=== PATIENT | male | born 1955 | race Caucasian/White ===

== ENCOUNTER → 2018-01-21 | Outpatient (CLI) | payer BC ==
[2018-01-21 18:06] LABS: BASO % 0.4 %; BASO ABS # 0.03 K/uL (0-0.2); EOS % 5.1 %; EOS ABS # 0.36 K/uL (0-0.5); HEMATOCRIT 44.6 % (42-52); HEMOGLOBIN 15.1 g/dL (14.0-18.0); IG# 0.02 K/uL (0.00-0.02); LYMPH % 30.5 %; LYMPH ABS # 2.16 K/uL (1.2-3.4); MEAN CELL VOLUME 86.8 fL (80-100); MEAN CORPUSCULAR HEMOGLOBIN 29.4 pg (25-34); MEAN CORPUSCULAR HGB CONC 33.9 g/dl (32-36); MEAN PLATELET VOLUME 11.2 fL (7.4-10.4); MONO % 5.4 %; MONO ABS # 0.38 K/uL (0.11-0.59); NEUT % 58.3 %; NEUT ABS # 4.14 K/uL (1.4-6.5); PLATELET COUNT 181 K/uL (130-400); RED CELL DISTRIBUTION WIDTH CV 12.6 % (11.5-14.5); RED CELL DISTRIBUTION WIDTH SD 40.1 fL (36.4-46.3); WHITE BLOOD COUNT 7.09 K/uL (4.8-10.8)
[2018-01-21 19:16] LABS: ALBUMIN 4.1 gm/dl (3.4-5.0); ALT/SGPT 51 U/L (12-78); AST/SGOT 26 U/L (15-37); BLOOD UREA NITROGEN 12 mg/dl (7-18); CALCIUM 8.6 mg/dl (8.5-10.1); CARBON DIOXIDE 30 mmol/L (21-32); GLUCOSE 192 mg/dl (70-99); LIPASE 149 U/L (73-393); POTASSIUM 3.9 mmol/L (3.5-5.1); SODIUM 137 mmol/L (136-145)
[2018-01-21 19:24] LABS: ALKALINE PHOSPHATASE 77 U/L (45-117); CHOLESTEROL 178 mg/dl (0-200); LDL CHOLESTEROL CALCULATED 102 mg/dl; TOTAL PROTEIN 8.1 gm/dl (6.4-8.2)
[2018-01-22 06:12] LABS: HEMOGLOBIN A1C 10.7 % (4.5-5.6)
== END | disposition home or self-care (01) ==
LOC: C.LABMFLN 12:27
PROVIDERS: ATTEND Family Medicine
DX: E11.42 Type 2 diabetes mellitus with diabetic polyneuropathy (principal); R53.83 Other fatigue; R10.31 Right lower quadrant pain; G62.9 Polyneuropathy, unspecified; Z12.5 Encounter for screening for malignant neoplasm of prostate

== ENCOUNTER → 2018-02-04 | Outpatient (CLI) | payer BC ==
--- NOTE | 2018-02-04 08:17 | DIAGNOSTIC IMAGING REPORT ---
ABDOMEN COMPLETE (US) CLINICAL HISTORY: Chronic right-sided abdominal pain. COMPARISON STUDY: No previous studies for comparison. FINDINGS: Study is compromised by suboptimal penetration. Hepatic echogenicity is mildly increased. No hepatic lesions are identified. There is no definite biliary ductal dilatation. Note is made of a 4 mm nonmobile echogenic focus adherent to the gallbladder wall without associated shadowing. This favors a polyp. There is no gallbladder wall thickening. No shadowing gallstones are identified. The pancreas is obscured by overlying bowel gas. The size of the spleen is normal there is no hydronephrosis. Renal echogenicity, size and cortical thickness are normal. The abdominal aorta is obscured by overlying bowel gas as is the inferior vena cava. IMPRESSION: 1. No evidence of acute cholecystitis. 4 mm nonmobile echogenic focus adherent to the gallbladder wall favors a polyp. 2. Study compromised by suboptimal penetration. Obscured pancreas and abdominal aorta. 3. Suspected fatty infiltration of the liver. 4. No hydronephrosis. Electronically signed by: Trever Yang M.D. 02/04/2018 8:16 AM Dictated Date/Time: 02/04/2018 8:09 AM
== END | disposition home or self-care (01) ==
LOC: C.ULTR 07:20
PROVIDERS: ATTEND Family Medicine
DX: R10.11 Right upper quadrant pain (principal); R10.31 Right lower quadrant pain

== ENCOUNTER 2023-01-03 17:58 | Observation (INO) ==
--- NOTE | 2023-01-03 18:05 | ED Triage Note ---
Date of Service January 03, 2023 History of Present Illness This patient was briefly evaluated while in triage. An abbreviated physical exam was performed. This patient is a 67-year-old Male who presents to the ED for evaluation of SOB. Pt. was at outpatient CT for PE study when he developed worsening SOB and chest pain with lying flat, and shivering. CT unable to control symptoms or complete study and referred to ED. Pt. had Covid-19 about 8 weeks ago. Has been having increasing fatigue, SOB, and low HR (40's) on home pulse ox. Physical Exam VITALS: Vitals are noted on the nurse's note and reviewed by myself. GENERAL: This is a 67 year old male, in no acute distress, nondiaphoretic, well- developed well-nourished. SKIN: No obvious rashes, edema, erythema HEAD: Normocephalic atraumatic. EYES: Conjunctivae without injection, sclerae without icterus. NECK: No JVD. LUNGS: No retractions or accessory muscle use. MUSCULOSKELETAL: Normal gait. NEURO: Patient was alert and oriented to person place and time. No focal neurological deficits. Initial orders for labs and / or imaging were placed and patient was placed in the waiting area until a bed is available. Please see further documentation for the full ED course. MDM / Impression Impression Impression: SOB (shortness of breath), Diabetes
--- NOTE | 2023-01-03 18:33 | Emergency Department Note ---
History of Present Illness General Chief complaint: Shortness of Breath/Dyspnea Stated complaint: SOB,HEART RATE LOW,ABNORMAL LABS Time Seen by Provider: 01/03/23 18:16 Source: patient, family (Niece is at the bedside) and old records reviewed (I have reviewed the office visit from today Dr. Becerra) Mode of arrival: ambulatory Limitations: no limitations History of Present Illness This patient is a 67-year-old male who comes in after having shortness of breath and low oxygen to 87 at home. He had COVID in October has been short of breath off and on since then he saw Dr. Garcia and he was ordered a CAT scan to make sure that he did not have any PE or other pathology the patient could not tolerate he got very anxious. He is feeling less anxious now he has had no chest pain or trauma no cough no lightheadedness or dizziness he said his pulse was low at home on a monitor but he had no lightheadedness or dizziness or syncope no blood or melena stool he has had some chronic diarrhea elated to his metformin. No lower extremity pain or swelling. He has known a [place] and is very active outside he does not get chest pain or shortness of breath at work he says but he does have a little bit of edema in his legs at the end of the day he has been very tired lately his B12 is been low and they have been replenishing this. he said since he had COVID in October he has been short of breath off and on. He says it occurs more at night and he takes a few deep breaths and feels better Home Medications Medication Instructions Recorded Confirmed Type metronidazole 0.75 % topical cream 1 appln topical BID PRN roseaca 05/08/19 01/03/23 Rx #45 grams triamcinolone acetonide 0.1 % 1 appln topical BID PRN contact 05/08/19 01/03/23 Rx topical cream dermatitis #30 grams tamsulosin 0.4 mg capsule 0.8 mg PO HS #180 caps 01/29/22 01/03/23 Rx lisinopril 10 mg tablet 10 mg PO DAILY #90 tabs 02/02/22 01/03/23 Rx propranolol 60 mg capsule,24 60 mg PO DAILY #90 caps 02/02/22 01/03/23 Rx hr,extended release atorvastatin 10 mg tablet 10 mg PO DAILY #90 tabs 05/28/22 01/03/23 Rx metformin 500 mg tablet,extended 500 mg PO BID #180 tabs 07/10/22 01/03/23 Rx release 24 hr gabapentin 300 mg capsule 300 mg PO BID #180 caps 08/07/22 01/03/23 Rx meloxicam 15 mg tablet 15 mg PO QAM #30 tabs 11/14/22 01/03/23 Rx glimepiride 2 mg tablet 2 mg PO .COMPLEX #270 tabs 12/11/22 01/03/23 Rx Allergies Allergy/AdvReac Type Severity Reaction Status Date / Time adhesive tape Allergy Mild RED/ITCHY Verified 12/11/22 09:06 Past Med/Surg History Medical History (Updated 01/03/23 @ 18:33 by Marcos Mcknight MD) Chronic back pain Claustrophobia Diabetes Diabetic neuropathy Dyspnea Elevated blood pressure reading Familial hyperlipidemia Fatigue Has daytime drowsiness History of tobacco use Hx of hyperlipidemia Hypoxia Left low back pain Memory loss Osteoarthritis Right sided abdominal pain Snoring Vitamin B12 deficiency anemia Witnessed episode of apnea Surgical History History of anesthesia reaction WITH HERNIA SURGERY, [facility]/DR BERNARD/"COME OUT OF IT LIKE A WILD MAN" - REMEMBERS 6 NURSES AROUND HIM , REMEMBERS HAVING A MASK ON HIM - PT CLAUSTROPHOBIC History of left knee surgery History of tonsillectomy Hx of arthroscopy of right knee Hx of arthroscopy of shoulder L ROTATOR CUFF REPAIR Hx of colonoscopy Hx of hernia repair X2 UMBILICAL, X1 RIGHT INGUINAL REPAIR Family History Father Family history of diabetes mellitus Black lung disease Coronary heart disease Stroke Cancer Myocardial infarction Mother Cancer Diabetes Brother Cancer Coronary heart disease Diabetes Pancreatitis Sister Diabetes Myocardial infarction Coronary heart disease Social History Smoking Status: Former smoker Cigarettes Per Day: 1/2-1 ppd x 20 years; Second Hand Exposure: No; Hx Alcohol Use: Yes Alcohol type: beer and hard liquor Hx Substance Use: No Preferred Language: Mongolian Communication Ability: Effective Visual Impairment: Limited Hearing Ability: Normal Bus Starter Required: No Beliefs That Will Affect Care: None marital status: Current Living Situation: Alone current occupational status: retired Feels Safe at Home: Yes Dental Care, Regularly: No Physical Activity Frequency: Does not Exercise Seatbelt Use: always Assistive Devices: Glasses Review of Systems A total of 10 systems reviewed and were otherwise negative Physical Exam Vital Signs Vital Signs - 24 hr 01/03/23 18:02 01/03/23 18:05 01/03/23 18:25 Temperature 36 C L Temperature Source Temporal Artery Scan Pulse Rate 70 62 Pulse Rate [Apical] Pulse Rhythm Regular Respiratory Rate 26 H Respiratory Effort / Characteristics Respiratory Depth Blood Pressure 141/84 H Blood Pressure [Right Arm] Blood Pressure Mean 103 Blood Pressure Mean [Right Arm] Pulse Oximetry 95 Oxygen Delivery Method Room Air Room Air Sepsis Recent Fever Within 48 Hours No Sepsis New/Unexplained Change in Mental Status No Sepsis Action Taken by Nursing No Action Required 01/03/23 18:41 Temperature Temperature Source Pulse Rate Pulse Rate [Apical] 59 L Pulse Rhythm Respiratory Rate 19 Respiratory Effort / Characteristics Non-Labored Spontaneous Respiratory Depth Normal Blood Pressure Blood Pressure [Right Arm] 166/72 H Blood Pressure Mean Blood Pressure Mean [Right Arm] 103 Pulse Oximetry 95 Oxygen Delivery Method Room Air Sepsis Recent Fever Within 48 Hours Sepsis New/Unexplained Change in Mental Status Sepsis Action Taken by Nursing General: Well developed well nourished [id number] middle-aged male who appears breathing comfortably on room air and in no acute distress, breathing comfortably on room air. Normal speech HEENT: Normal cephalic atraumatic. Pupils are equal round and reactive to light. Extraocular movements are intact. Oropharynx is pink with moist mucous membranes. No swelling of the mouth lips or tongue. No swelling mouth lips or tongue. Neck: Supple with a midline trachea. No meningeal signs or stiffness, no JVD or bruits. No Stridor. Chest: Clear to auscultation bilaterally. No wheezes or rhonchi. No increased work of breathing. Heart: Regular rate and rhythm without murmurs or gallops. Abdomen: Soft nontender, nondistended without rebound guarding or rigidity. Extremities: No cyanosis clubbing or edema. No calf tenderness or assymetry Spine/Back. Non tender to palpation. No CVA tenderness Skin: Good turgor without rashes. Neurologic exam: Cranial nerves two through 12 are intact. Motor and sensation are intact and symmetrical throughout. Medical Decision Making Differential Diagnosis Infection, CHF, cardiac disease, PE, COVID complication, pulmonary disease, anemia, electrolyte or metabolic abnormality, anxiety, arrhythmia Medical Records Attestation: I reviewed the patient's medical records. Home Medications Current Medication List: was personally reviewed by me Laboratory Data Attestation: I reviewed the patient's lab results. 01/03/23 18:17 01/03/23 18:17 Lab Results 01/03/23 01/03/23 01/03/23 Range/Units 18:17 18:17 18:17 WBC 8.20 (4.8-10.8) K/ul RBC 4.63 L (4.70-6.10) M/uL Hgb 13.7 L (14.0-18.0) g/dl Hct 40.7 L (42.0-52.0) % MCV 87.9 (80.0-100.0) fL MCH 29.6 (25.0-34.0) pg MCHC 33.7 (32.0-36.0) g/dL RDW Std Deviation 41.9 (36.4-46.3) fL RDW Coeff of Cristel 13.1 (11.5-14.5) % Plt Count 175 (130-400) K/uL MPV 11.4 (9.4-12.4) fL Immature Gran % (Auto) 0.4 % Neut % (Auto) 57.4 % Lymph % (Auto) 26.3 % [place] % (Auto) 9.3 % Eos % (Auto) 6.0 % Baso % (Auto) 0.6 % Neut # (Auto) 4.71 (1.40-6.50) K/uL Lymph # (Auto) 2.16 (1.2-3.4) K/uL [place] # (Auto) 0.76 H (0.11-0.59) K/uL Eos # (Auto) 0.49 (0-0.50) K/uL Baso # (Auto) 0.05 (0-0.2) K/uL Immature Gran # (Auto) 0.03 (0.01-0.20) K/uL PT 11.0 (9.0-12.0) Seconds INR 1.0 (0.9-1.1) APTT 26.4 (21.0-31.0) Seconds PTT Ratio 0.9 VBG pH (7.36-7.41) VBG pCO2 (38-50) mmHg VBG pO2 mmHg VBG HCO3 mmol/L VBG O2 Saturation % VBG Base Excess mEq/L Sodium 140 (136-145) mmol/L Potassium 4.5 (3.5-5.1) mmol/L Chloride 106 (98-107) mmol/L Carbon Dioxide 34 H (21-32) mmol/L Anion Gap 0 L (3-11) BUN 14 (6-23) mg/dl Creatinine 0.97 (0.6-1.4) mg/dl Est Cr Clr Drug Dosing 94.7 ml/min Est GFR ( Amer) 93.9 ml/min Est GFR (Non-Af Amer) 81.0 ml/min BUN/Creatinine Ratio 14.4 (10-20) Glucose 144 H (70-99(Fasting)) mg/dl Calcium 9.6 (8.6-10.3) mg/dl Magnesium 1.5 L (1.7-2.4) mg/dl Total Bilirubin 0.5 (0.2-1.0) mg/dl AST 16 (13-39) U/L ALT 17 (7-52) U/L Alkaline Phosphatase 64 (34-104) U/L Troponin I High Sens 7.5 (0-20) pg/ml B-Natriuretic Peptide (0-100) pg/ml Total Protein 7.6 (6.0-8.3) gm/dl Albumin 4.7 (3.4-5.0) gm/dl Globulin 2.9 (2.5-4.0) gm/dl Albumin/Globulin Ratio 1.6 (0.9-2) Urine Color Urine Appearance (Clear) Urine pH (4.5-7.5) Ur Specific [place] (1.000-1.030) Urine Protein (Negative) Urine Glucose (UA) (Negative) Urine Ketones (Negative) Urine Blood (Negative) Urine Nitrite (Negative) Urine Bilirubin (Negative) Urine Urobilinogen (Negative) Ur Leukocyte Esterase (Negative) 01/03/23 01/03/23 01/03/23 Range/Units 18:17 18:17 18:50 WBC (4.8-10.8) K/ul RBC (4.70-6.10) M/uL Hgb (14.0-18.0) g/dl Hct (42.0-52.0) % MCV (80.0-100.0) fL MCH (25.0-34.0) pg MCHC (32.0-36.0) g/dL RDW Std Deviation (36.4-46.3) fL RDW Coeff of Cristel (11.5-14.5) % Plt Count (130-400) K/uL MPV (9.4-12.4) fL Immature Gran % (Auto) % Neut % (Auto) % Lymph % (Auto) % [place] % (Auto) % Eos % (Auto) % Baso % (Auto) % Neut # (Auto) (1.40-6.50) K/uL Lymph # (Auto) (1.2-3.4) K/uL [place] # (Auto) (0.11-0.59) K/uL Eos # (Auto) (0-0.50) K/uL Baso # (Auto) (0-0.2) K/uL Immature Gran # (Auto) (0.01-0.20) K/uL PT (9.0-12.0) Seconds INR (0.9-1.1) APTT (21.0-31.0) Seconds PTT Ratio VBG pH 7.30 L (7.36-7.41) VBG pCO2 67 H (38-50) mmHg VBG pO2 18 mmHg VBG HCO3 33 mmol/L VBG O2 Saturation < 60.0 % VBG Base Excess 4.4 mEq/L Sodium (136-145) mmol/L Potassium (3.5-5.1) mmol/L Chloride (98-107) mmol/L Carbon Dioxide (21-32) mmol/L Anion Gap (3-11) BUN (6-23) mg/dl Creatinine (0.6-1.4) mg/dl Est Cr Clr Drug Dosing ml/min Est GFR ( Amer) ml/min Est GFR (Non-Af Amer) ml/min BUN/Creatinine Ratio (10-20) Glucose (70-99(Fasting)) mg/dl Calcium (8.6-10.3) mg/dl Magnesium (1.7-2.4) mg/dl Total Bilirubin (0.2-1.0) mg/dl AST (13-39) U/L ALT (7-52) U/L Alkaline Phosphatase (34-104) U/L Troponin I High Sens (0-20) pg/ml B-Natriuretic Peptide 199 H (0-100) pg/ml Total Protein (6.0-8.3) gm/dl Albumin (3.4-5.0) gm/dl Globulin (2.5-4.0) gm/dl Albumin/Globulin Ratio (0.9-2) Urine Color Yellow Urine Appearance Clear (Clear) Urine pH 5.5 (4.5-7.5) Ur Specific [place] 1.022 (1.000-1.030) Urine Protein Negative (Negative) Urine Glucose (UA) 3+ H (Negative) Urine Ketones Negative (Negative) Urine Blood Negative (Negative) Urine Nitrite Negative (Negative) Urine Bilirubin Negative (Negative) Urine Urobilinogen Negative (Negative) Ur Leukocyte Esterase Negative (Negative) Imaging Data Attestation: I personally reviewed and interpreted this imaging study as follows: My Impression: Chest x-raythere is an elevation of the right hemidiaphragm but no acute infiltrate, failure, pneumothorax seen Radiologist's Impression: Chest X-Ray 01/03/23 18:26 XR chest 1V portable HISTORY: 67 years-old Male sob acute shortness of breath COMPARISON: 02/26/2019 TECHNIQUE: AP view the chest FINDINGS: Cardiac silhouette is enlarged. Moderate right hemidiaphragmatic elevation, unchanged. No pneumothorax, pleural effusion, airspace consolidation or overt pulmonary edema. Degenerative changes of the shoulders and spine. IMPRESSION: No acute process. ACT 112: Negative or not required by law. The above report was generated using voice recognition software. It may contain grammatical, syntax or spelling errors. Electronically signed by: Kuldeep Shepherd M.D. 01/03/2023 7:00 PM ECG Data Attestation: I personally reviewed and interpreted this ECG as follows: Indication: + SOB/dyspnea Rate (beats per minute): 74 Rhythm: + normal sinus (Poor baseline but suspected normal sinus) ECG Intervals/blocks: + Normal QRS, + Normal QT and + Normal ID ECG [place]: + Normal ECG ST segments: + Nonspecific ST abnormalities ECG Findings: + Poor R wave progression; no PACs Comparison ECG Date: from (11/05/22) Change: no significant change MDM Narrative This patient comes in as described above. He was placed on a monitoring manager in room B8. He is here for intermittent shortness of breath since October. He reports that he was hypoxemic at home however is not hypoxemic here apparently when he was at Dr. Garcia's office his O2 sat dropped when he was exerting himself. He got very anxious in the CT scanner and could not complete the exam. I did order baseline blood work as well as a chest x-ray and EKG and discussed options about how we can get the CAT scan done including giving him some anxiolytics. Continuous monitoring manager: Orders placed in EMR for continuous cardiac monitoring: Upon my interpretation the patient was noted to be in normal sinus rhythm with a rate of 70 Impression & Plan SOB (shortness of breath), Diabetes Discharge Plan Visit Data Chief Complaint: Shortness of Breath/Dyspnea Stated Complaint: SOB,HEART RATE LOW,ABNORMAL LABS ED Provider: Marcos Mcknight Discharge Problem: SOB (shortness of breath), Diabetes Forms Stand Alone Forms: My [facility] Prescriptions Prescriptions: No Action tamsulosin 0.4 mg capsule 0.8 mg PO HS Qty: 180 3RF lisinopril 10 mg tablet 10 mg PO DAILY Qty: 90 3RF propranolol 60 mg capsule,extended release 24 hr 60 mg PO DAILY Qty: 90 3RF atorvastatin 10 mg tablet 10 mg PO DAILY Qty: 90 3RF Rx Instructions: Take with supper for cholesterol meloxicam 15 mg tablet 15 mg PO QAM Qty: 30 11RF metronidazole 0.75 % cream 1 appln topical BID PRN (Reason: roseaca) Qty: 45 3RF triamcinolone acetonide 0.1 % cream 1 appln topical BID PRN (Reason: contact dermatitis) Qty: 30 0RF metformin 500 mg tablet extended release 24 hr 500 mg PO BID Qty: 180 3RF glimepiride 2 mg tablet 2 mg PO .COMPLEX Qty: 270 3RF Rx Instructions: 2 mg orally 1 prior to breakfast and 2 prior to supper; gabapentin 300 mg capsule 300 mg PO BID Qty: 180 3RF Referrals Referrals: Evaristo Garcia MD [Primary Care Provider] -
[2023-01-03 18:43] LABS: Base Excess VBG 4.4 mEq/L; HCO3 VBG 33 mmol/L; Oxygen Saturation VBG < 60.0 %; PCO2 VBG 67 mmHg (38-50); PO2 VBG 18 mmHg
[2023-01-03 18:56] LABS: Basophils # (auto) 0.05 K/uL (0-0.2); Basophils % (auto) 0.6 %; Eosinophils # (auto) 0.49 K/uL (0-0.50); Hematocrit (blood only) 40.7 % (42.0-52.0); Hemoglobin 13.7 g/dl (14.0-18.0); Immature Granulocytes # (auto) 0.03 K/uL (0.01-0.20); Immature Granulocytes % (auto) 0.4 %; Lymphocytes # (auto) 2.16 K/uL (1.2-3.4); Lymphocytes % (auto) 26.3 %; Mean Corpuscular Hemoglobin 29.6 pg (25.0-34.0); Mean Corpuscular Hgb Conc 33.7 g/dL (32.0-36.0); Mean Corpuscular Volume 87.9 fL (80.0-100.0); Mean Platelet Volume 11.4 fL (9.4-12.4); Monocytes # (auto) 0.76 K/uL (0.11-0.59); Monocytes % (auto) 9.3 %; Neutrophils # (auto) 4.71 K/uL (1.40-6.50); Neutrophils % (auto) 57.4 %; Platelet Count 175 K/uL (130-400); RDW Coefficient of Variation 13.1 % (11.5-14.5); RDW Standard Deviation 41.9 fL (36.4-46.3); Red Blood Count 4.63 M/uL (4.70-6.10)
[2023-01-03 19:01] LABS: Appearance Urine Clear (Clear); Bilirubin Urine Negative (Negative); Blood Urine Negative (Negative); Color Urine Yellow; Glucose Urine UA 3+ (Negative); Ketones Urine Negative (Negative); Leukocyte Esterase Urine Negative (Negative); Nitrite Urine Negative (Negative); Protein Urine Negative (Negative); Specific Gravity Urine 1.022 (1.000-1.030); Urobilinogen Urine Negative (Negative); pH Urine 5.5 (4.5-7.5)
[2023-01-03 19:02] LABS: Albumin Globulin Ratio 1.6 (0.9-2); Albumin Level 4.7 gm/dl (3.4-5.0); BUN Creatinine Ratio 14.4 (10-20); Bilirubin,Total 0.5 mg/dl (0.2-1.0); Calcium 9.6 mg/dl (8.6-10.3); Creatinine Clr Calc Pharmacy 94.7 ml/min; Est GFR (African American) 93.9 ml/min; Globulin 2.9 gm/dl (2.5-4.0); Magnesium 1.5 mg/dl (1.7-2.4); Potassium 4.5 mmol/L (3.5-5.1); Total Protein 7.6 gm/dl (6.0-8.3)
--- NOTE | 2023-01-03 19:02 | XRay Report ---
XR chest 1V portable HISTORY: 67 years-old Male sob acute shortness of breath COMPARISON: 02/26/2019 TECHNIQUE: AP view the chest FINDINGS: Cardiac silhouette is enlarged. Moderate right hemidiaphragmatic elevation, unchanged. No pneumothora x, pleural effusion, airspace consolidation or overt pulmonary edema. Degenerative changes of the easton ulders and spine. IMPRESSION: No acute process. ACT 112: Negative or not required by law. The above report was generated using voice recognition software. It may contain grammatical, syntax o r spelling errors. Electronically signed by: Kuldeep Shepherd M.D. 01/03/2023 7:00 PM
[2023-01-03 19:09] LABS: Troponin I High Sensitivity 7.5 pg/ml (0-20)
[2023-01-03 19:15] LABS: Partial Thromboplastin Ratio 0.9; Partial Thromboplastin Time 26.4 Seconds (21.0-31.0)
[2023-01-03] MEDS ORDERED: LORazepam 2 MG/1 ML VIAL IV STA (19:20)
[2023-01-03 19:35] LABS: Influenza A virus by PCR Negative (Neg); Influenza B virus by PCR Negative (Neg); RSV by PCR Negative (Neg); SARS CoV2 RNA(COVID-19) Ceph NEGATIVE (Negative)
[2023-01-03] MEDS ORDERED: OPTIRAY 320 500ml IV ONE (20:13)
--- NOTE | 2023-01-03 20:49 | CT Scan Report ---
Exam(s): CTA CHEST IV Amt: 113ml Optiray 320 EXAM: CT Angiography Chest With Intravenous Contrast CLINICAL HISTORY: Reason for exam: Dyspnea. TECHNIQUE: Axial computed tomographic angiography images of the chest with intravenous contrast. CTDI is 50.19 mGy and DLP is 905.85 mGy-cm. Automated exposure control was utilized for the study. A dose lowering technique was utilized adhering to the principles of ALARA. MIP reconstructed images were created and reviewed. COMPARISON: No relevant prior studies available. FINDINGS: Pulmonary arteries: Unremarkable. No acute pulmonary embolism. Aorta: No acute findings. No thoracic aortic aneurysm. Lungs: Right base atelectasis. No focal infiltrate, pleural effusion, or pneumothorax. No mass. Pleural space: See above. Heart: Coronary artery calcifications. No significant pericardial effusion. No evidence of RV dysfunction. Bones/joints: No acute fracture. No dislocation. Soft tissues: Unremarkable. Lymph nodes: Unremarkable. No enlarged lymph nodes. Gallbladder and bile ducts: Punctate gallstones. IMPRESSION: 1. Right base atelectasis. No focal infiltrate, pleural effusion, or pneumothorax. 2. No acute pulmonary embolism. Electronically signed by: Timothy Godoy MD 01/03/23 20:48 PM
[2023-01-03] MEDS ORDERED: MAGNESIUM SULFATE / D5W 1 GM/100 ML BAG IV STA (21:19)
[2023-01-03] MEDS ORDERED: GABAPENTIN 300 MG CAP PO STA (23:16)
[2023-01-03] MEDS ORDERED: TAMSULOSIN HCL 0.4 MG CAP PO ONE (23:16)
[2023-01-04] MEDS ORDERED: GLUCOSE 40% GEL 15 GM TUBE PO PRN (00:18)
[2023-01-04] MEDS ORDERED: CARBOHYDRATES FOR HYPOGLYCEMIA PO PRN (00:18)
[2023-01-04] MEDS ORDERED: GLUCAGON FOR INJ 1 MG VIAL SQ PRN (00:18)
[2023-01-04] MEDS ORDERED: FUROSEMIDE INJ 20 MG/2 ML VIAL IV ONE (00:18)
[2023-01-04] MEDS ORDERED: ACETAMINOPHEN 325 MG TAB PO PRN (00:18)
[2023-01-04] MEDS ORDERED: GLUCOSE 10 TAB/TUBE PO PRN (00:18)
[2023-01-04] MEDS ORDERED: DEXTROSE 50% 50 ML SYRINGE IV PRN (00:18)
--- NOTE | 2023-01-04 01:25 | History & Physical Report ---
Date of Service January 03, 2023 Assessment & Plan (1) SOB (shortness of breath): Plan: 67-year-old male presenting with ongoing shortness of breath and hypoxia. Saturations 95% on 2 L nasal cannula. Postexertional hypoxia noted 85% after returning from the bathroom. Chest x-ray and CTA chest unremarkable aside from some right-sided atelectasis. Patient does report some mild bilateral lower extremity edema. He has mild elevation of BNP = 199. On telemetry accelerated junctional rhythm is noted. Possible CHF with mild volume overload contributing to patient's symptoms and mild hypoxemia. He does have a remote history of smoking. Reports smoking 1/4 to 1/2 pack a day intermittently for 15 years. He quit over 30 years ago. Has no previously diagnosed lung disease. Patient has never had a sleep study performed nor has he had pulmonary function testing. -Observation to medical telemetry Check 2D echo We will administer 1 dose of IV Lasix20 mg IV Monitor intake and output and daily weights Incentive spirometerencourage use q. hourly while awake Patient may benefit from outpatient sleep study (2) Hypoxia: Plan: Oxygenation on 2 L nasal cannula Continue supplemental oxygen Work-up for hypoxemia as above (3) Benign essential hypertension: Plan: Chronic. Elevated blood pressure presently 160/79 Continue lisinopril 10 mg p.o. daily Continue propranolol 60 mg p.o. daily with holding parameters given patient's present bradycardia (4) Controlled type 2 diabetes mellitus with diabetic neuropathy: Plan: Last hemoglobin A1c = 8.4 in 11/28/2022. Patient is compliant with his home oral medication regimen. We will hold oral diabetes medications Lantus 5 units twice daily with insulin sliding scale Goal blood sugar 110-140 Continue gabapentin for diabetic neuropathy (5) Hx of hyperlipidemia: Plan: Chronic. Stable. Continue atorvastatin 10 mg daily F/E/N -Hep-Lock, magnesium supplementation, carb consistent/heart healthy diet as tolerated ProphylaxisLovenox Codefull per discussion with patient Dispositionadmit to medical with telemetry Admission and Anticipated Discharge Date Admission Date: January 03, 2023 History of Present Illness Chief Complaint: Hypoxia, fatigue, shortness of breath Primary Care Provider: Evaristo Garcia MD Manish Madrid is a 67-year-old male with history of diabetes, hypertension and hyperlipidemia presenting from home with complaint of several weeks of progressive shortness of breath. Patient had COVID on November 05, 2022. He reports that his illness was mild. However, since recovering, he reports ongoing fatigue and shortness of breath. Patient recently purchased a home pulse oximeter and has been monitoring his saturations. He reports they have been low in the upper 80s with heart rate in the 40s to 50s. He does report feeling short of breath with some dyspnea on exertion as well. He was seen by his PCP today with these complaints. Was found to have oxygen levels in the 80s and was subsequently sent to the emergency room. Patient denies chest pain, palpitations, cough or wheeze. Denies fever, chills. Denies nausea, vomiting, diarrhea, constipation. Denies dizziness or syncope. He does have some mild increase in bilateral lower extremity edema noted over the last week or so. Patient seen in the room. Was breathing comfortably and speaking in complete sentences. He had supplemental oxygen in place2 L nasal cannula with saturations in the mid 90s. Oxygen turned off during our conversation and saturations maintained 92% or above. Patient did get up and ambulate to the bathroom without oxygen, upon his return to the bed saturations were 85% and patient was visibly dyspneic. ER course: Ativan 1 mg IV Magnesium 1 g IV Flomax 0.4 mg orderednot given Gabapentin 300 mg p.o. orderednot given Allergies Allergy/AdvReac Type Severity Reaction Status Date / Time adhesive tape Allergy Mild RED/ITCHY Verified 12/11/22 09:06 Home Medications Medication Instructions Recorded Confirmed Type metronidazole 0.75 % topical cream 1 appln topical BID PRN roseaca 05/08/19 01/03/23 Rx #45 grams triamcinolone acetonide 0.1 % 1 appln topical BID PRN contact 05/08/19 01/03/23 Rx topical cream dermatitis #30 grams tamsulosin 0.4 mg capsule 0.8 mg PO HS #180 caps 01/29/22 01/03/23 Rx lisinopril 10 mg tablet 10 mg PO DAILY #90 tabs 02/02/22 01/03/23 Rx propranolol 60 mg capsule,24 60 mg PO DAILY #90 caps 02/02/22 01/03/23 Rx hr,extended release atorvastatin 10 mg tablet 10 mg PO DAILY #90 tabs 05/28/22 01/03/23 Rx metformin 500 mg tablet,extended 500 mg PO BID #180 tabs 07/10/22 01/03/23 Rx release 24 hr gabapentin 300 mg capsule 300 mg PO BID #180 caps 08/07/22 01/03/23 Rx meloxicam 15 mg tablet 15 mg PO QAM #30 tabs 11/14/22 01/03/23 Rx glimepiride 2 mg tablet 2 mg PO .COMPLEX #270 tabs 12/11/22 01/03/23 Rx Past Med/Surg History Medical History (Updated 01/04/23 @ 01:33 by Laurie Smalls DO) Chronic back pain Claustrophobia Diabetes Diabetic neuropathy Dyspnea Elevated blood pressure reading Familial hyperlipidemia Fatigue Has daytime drowsiness History of tobacco use Hx of hyperlipidemia Hypoxia Left low back pain Memory loss Osteoarthritis Right sided abdominal pain Snoring Vitamin B12 deficiency anemia Witnessed episode of apnea Surgical History History of anesthesia reaction WITH HERNIA SURGERY, [facility]/DR BERNARD/"COME OUT OF IT LIKE A WILD MAN" - REMEMBERS 6 NURSES AROUND HIM , REMEMBERS HAVING A MASK ON HIM - PT CLAUSTROPHOBIC History of left knee surgery History of tonsillectomy Hx of arthroscopy of right knee Hx of arthroscopy of shoulder L ROTATOR CUFF REPAIR Hx of colonoscopy Hx of hernia repair X2 UMBILICAL, X1 RIGHT INGUINAL REPAIR Family History Father Family history of diabetes mellitus Black lung disease Coronary heart disease Stroke Cancer Myocardial infarction Mother Cancer Diabetes Brother Cancer Coronary heart disease Diabetes Pancreatitis Sister Diabetes Myocardial infarction Coronary heart disease Social History Smoking Status: Former smoker Cigarettes Per Day: 1/2-1 ppd x 20 years; Second Hand Exposure: No; Do You Dip or Chew Tobacco: No; Hx Alcohol Use: Yes Alcohol type: beer, wine and hard liquor Hx Substance Use: No Preferred Language: Filipino Communication Ability: Effective Visual Impairment: Limited Hearing Ability: Normal 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 Beliefs That Will Affect Care: None marital status: Current Living Situation: Alone current occupational status: retired Other Information That Helps Us Care for You: No Feels Safe at Home: Yes Safety Concerns: Feels Safe At This Time Dental Care, Regularly: No Physical Activity Frequency: Does not Exercise Seatbelt Use: always Assistive Devices: Denture - Upper and Glasses Review of Systems Review of Systems: All systems reviewed & are unremarkable except as noted in HPI & below Physical Exam Physical Exam: General: patient resting comfortably, NAD, non-toxic in appearance, AA&O x 4 Skin: warm, dry, intact, no rashes or lesions HEENT: NC/AT, PERRL, EOMI, anicteric sclera, conjunctiva without injection, external ear normal to inspection and nontender, nares patent, moist mucus membranes, dentition intact, no oropharyngeal lesions, neck supple, trachea midline, no LAD, no thyromegaly, no JVD Heart: +S1/S2, regular, no m/r/g Lungs: equal air entry bilaterally, crackles in bilateral bases Abd: +BS, soft, NT/ND, no masses/organomegaly/ascites Ext: warm, 2+ pulses in UE/LE bilaterally, no clubbing/cyanosis, 1+ pitting edema bilateral lower extremities Neuro: nonfocal, patient AA&O x 4, speech intact, no facial droop, moving all extremities on command with equal strength 5/5 Results & Data Results & Data Vital Signs (Past 12 Hours) Vital Signs Temp Pulse Pulse Resp BP BP Pulse Ox 01/04/23 00:36 01/04/23 00:36 36.5 C 59 L 20 160/79 H 93 01/03/23 23:40 72 20 95 01/03/23 23:31 165/67 H 01/03/23 23:31 60 20 96 01/03/23 23:30 64 20 94 01/03/23 23:20 95 01/03/23 23:00 72 18 92 01/03/23 23:00 164/92 H 01/03/23 22:50 74 20 94 01/03/23 22:40 67 22 95 01/03/23 22:30 72 20 95 01/03/23 22:30 166/79 H 01/03/23 22:20 63 24 95 01/03/23 22:10 64 22 95 01/03/23 22:00 80 24 95 01/03/23 22:00 161/78 H 01/03/23 21:50 80 22 96 01/03/23 21:40 77 15 96 01/03/23 21:30 72 19 95 01/03/23 21:30 159/84 H 01/03/23 21:20 58 L 17 95 01/03/23 21:10 72 20 95 01/03/23 21:00 71 17 92 01/03/23 21:00 133/70 01/03/23 20:50 65 92 01/03/23 20:40 61 19 91 01/03/23 20:30 74 90 01/03/23 20:30 142/72 H 01/03/23 20:20 68 21 91 01/03/23 20:20 143/78 H 01/03/23 20:18 91 01/03/23 19:50 64 16 01/03/23 19:40 58 L 22 93 01/03/23 19:35 66 23 93 01/03/23 19:35 150/96 H 01/03/23 19:20 60 16 94 01/03/23 19:10 53 L 15 92 01/03/23 19:00 59 L 15 94 01/03/23 19:00 176/76 H 01/03/23 18:53 68 23 92 01/03/23 18:41 166/72 H 01/03/23 18:41 61 19 95 01/03/23 18:40 59 L 15 93 01/03/23 18:30 46 L 19 94 01/03/23 18:20 65 22 95 01/03/23 18:15 77 96 01/03/23 23:59 01/03/23 22:26 73 01/03/23 18:41 59 L 19 166/72 H 95 01/03/23 18:25 62 01/03/23 18:05 01/03/23 18:02 36 C L 70 26 H 141/84 H 95 O2 Del Method O2 Flow Rate 01/04/23 00:36 Nasal Cannula 2 01/04/23 00:36 Nasal Cannula 2 01/03/23 23:40 01/03/23 23:31 01/03/23 23:31 01/03/23 23:30 01/03/23 23:20 01/03/23 23:00 01/03/23 23:00 01/03/23 22:50 01/03/23 22:40 01/03/23 22:30 01/03/23 22:30 01/03/23 22:20 01/03/23 22:10 01/03/23 22:00 01/03/23 22:00 01/03/23 21:50 01/03/23 21:40 01/03/23 21:30 01/03/23 21:30 01/03/23 21:20 01/03/23 21:10 01/03/23 21:00 Nasal Cannula 2 01/03/23 21:00 01/03/23 20:50 01/03/23 20:40 01/03/23 20:30 01/03/23 20:30 01/03/23 20:20 01/03/23 20:20 01/03/23 20:18 01/03/23 19:50 01/03/23 19:40 01/03/23 19:35 01/03/23 19:35 01/03/23 19:20 01/03/23 19:10 01/03/23 19:00 01/03/23 19:00 01/03/23 18:53 01/03/23 18:41 01/03/23 18:41 01/03/23 18:40 01/03/23 18:30 01/03/23 18:20 01/03/23 18:15 01/03/23 23:59 Nasal Cannula 2 01/03/23 22:26 01/03/23 18:41 Room Air 01/03/23 18:25 01/03/23 18:05 Room Air 01/03/23 18:02 Room Air Laboratory Results Laboratory Results WBC 8.20 K/ul (4.8-10.8) 01/03/23 18:17 RBC 4.63 M/uL (4.70-6.10) L 01/03/23 18:17 Hgb 13.7 g/dl (14.0-18.0) L 01/03/23 18:17 Hct 40.7 % (42.0-52.0) L 01/03/23 18:17 MCV 87.9 fL (80.0-100.0) 01/03/23 18:17 MCH 29.6 pg (25.0-34.0) 01/03/23 18:17 MCHC 33.7 g/dL (32.0-36.0) 01/03/23 18:17 RDW Std Deviation 41.9 fL (36.4-46.3) 01/03/23 18:17 RDW Coeff of Cristel 13.1 % (11.5-14.5) 01/03/23 18:17 Plt Count 175 K/uL (130-400) 01/03/23 18:17 MPV 11.4 fL (9.4-12.4) 01/03/23 18:17 Immature Gran % (Auto) 0.4 % 01/03/23 18:17 Neut % (Auto) 57.4 % 01/03/23 18:17 Lymph % (Auto) 26.3 % 01/03/23 18:17 [place] % (Auto) 9.3 % 01/03/23 18:17 Eos % (Auto) 6.0 % 01/03/23 18:17 Baso % (Auto) 0.6 % 01/03/23 18:17 Neut # (Auto) 4.71 K/uL (1.40-6.50) 01/03/23 18:17 Lymph # (Auto) 2.16 K/uL (1.2-3.4) 01/03/23 18:17 [place] # (Auto) 0.76 K/uL (0.11-0.59) H 01/03/23 18:17 Eos # (Auto) 0.49 K/uL (0-0.50) 01/03/23 18:17 Baso # (Auto) 0.05 K/uL (0-0.2) 01/03/23 18:17 Immature Gran # (Auto) 0.03 K/uL (0.01-0.20) 01/03/23 18:17 PT 11.0 Seconds (9.0-12.0) 01/03/23 18:17 INR 1.0 (0.9-1.1) 01/03/23 18:17 APTT 26.4 Seconds (21.0-31.0) 01/03/23 18:17 PTT Ratio 0.9 01/03/23 18:17 VBG pH 7.30 (7.36-7.41) L 01/03/23 18:17 VBG pCO2 67 mmHg (38-50) H 01/03/23 18:17 VBG pO2 18 mmHg 01/03/23 18:17 VBG HCO3 33 mmol/L 01/03/23 18:17 VBG O2 Saturation < 60.0 % 01/03/23 18:17 VBG Base Excess 4.4 mEq/L 01/03/23 18:17 Sodium 140 mmol/L (136-145) 01/03/23 18:17 Potassium 4.5 mmol/L (3.5-5.1) 01/03/23 18:17 Chloride 106 mmol/L (98-107) 01/03/23 18:17 Carbon Dioxide 34 mmol/L (21-32) H 01/03/23 18:17 Anion Gap 0 (3-11) L 01/03/23 18:17 BUN 14 mg/dl (6-23) 01/03/23 18:17 Creatinine 0.97 mg/dl (0.6-1.4) 01/03/23 18:17 Est Cr Clr Drug Dosing 94.7 ml/min 01/03/23 18:17 Est GFR ( Amer) 93.9 ml/min 01/03/23 18:17 Est GFR (Non-Af Amer) 81.0 ml/min 01/03/23 18:17 BUN/Creatinine Ratio 14.4 (10-20) 01/03/23 18:17 Glucose 144 mg/dl (70-99(Fasting)) H 01/03/23 18:17 POC Glucose 210 mg/dl (70-99) H 01/04/23 00:49 Calcium 9.6 mg/dl (8.6-10.3) 01/03/23 18:17 Magnesium 1.5 mg/dl (1.7-2.4) L 01/03/23 18:17 Total Bilirubin 0.5 mg/dl (0.2-1.0) 01/03/23 18:17 AST 16 U/L (13-39) 01/03/23 18:17 ALT 17 U/L (7-52) 01/03/23 18:17 Alkaline Phosphatase 64 U/L (34-104) 01/03/23 18:17 Troponin I High Sens 7.3 pg/ml (0-20) 01/03/23 21:27 B-Natriuretic Peptide 199 pg/ml (0-100) H 01/03/23 18:17 Total Protein 7.6 gm/dl (6.0-8.3) 01/03/23 18:17 Albumin 4.7 gm/dl (3.4-5.0) 01/03/23 18:17 Globulin 2.9 gm/dl (2.5-4.0) 01/03/23 18:17 Albumin/Globulin Ratio 1.6 (0.9-2) 01/03/23 18:17 Urine Color Yellow 01/03/23 18:50 Urine Appearance Clear (Clear) 01/03/23 18:50 Urine pH 5.5 (4.5-7.5) 01/03/23 18:50 Ur Specific [place] 1.022 (1.000-1.030) 01/03/23 18:50 Urine Protein Negative (Negative) 01/03/23 18:50 Urine Glucose (UA) 3+ (Negative) H 01/03/23 18:50 Urine Ketones Negative (Negative) 01/03/23 18:50 Urine Blood Negative (Negative) 01/03/23 18:50 Urine Nitrite Negative (Negative) 01/03/23 18:50 Urine Bilirubin Negative (Negative) 01/03/23 18:50 Urine Urobilinogen Negative (Negative) 01/03/23 18:50 Ur Leukocyte Esterase Negative (Negative) 01/03/23 18:50 SARS-CoV-2 (PCR) NEGATIVE (Negative) 01/03/23 18:42 Influenza Type A (PCR) Negative (Neg) 01/03/23 18:42 Influenza Type B (PCR) Negative (Neg) 01/03/23 18:42 RSV (RT-PCR) Negative (Neg) 01/03/23 18:42 Impressions Chest CTA 01/03/23 18:05 Exam(s): CTA CHEST IV Amt: 113ml Optiray 320 EXAM: CT Angiography Chest With Intravenous Contrast CLINICAL HISTORY: Reason for exam: Dyspnea. TECHNIQUE: Axial computed tomographic angiography images of the chest with intravenous contrast. CTDI is 50.19 mGy and DLP is 905.85 mGy-cm. Automated exposure control was utilized for the study. A dose lowering technique was utilized adhering to the principles of ALARA. MIP reconstructed images were created and reviewed. COMPARISON: No relevant prior studies available. FINDINGS: Pulmonary arteries: Unremarkable. No acute pulmonary embolism. Aorta: No acute findings. No thoracic aortic aneurysm. Lungs: Right base atelectasis. No focal infiltrate, pleural effusion, or pneumothorax. No mass. Pleural space: See above. Heart: Coronary artery calcifications. No significant pericardial effusion. No evidence of RV dysfunction. Bones/joints: No acute fracture. No dislocation. Soft tissues: Unremarkable. Lymph nodes: Unremarkable. No enlarged lymph nodes. Gallbladder and bile ducts: Punctate gallstones. IMPRESSION: 1. Right base atelectasis. No focal infiltrate, pleural effusion, or pneumothorax. 2. No acute pulmonary embolism. Electronically signed by: Timothy Godoy MD 01/03/23 20:48 PM Chest X-Ray 01/03/23 18:26 XR chest 1V portable HISTORY: 67 years-old Male sob acute shortness of breath COMPARISON: 02/26/2019 TECHNIQUE: AP view the chest FINDINGS: Cardiac silhouette is enlarged. Moderate right hemidiaphragmatic elevation, unchanged. No pneumothorax, pleural effusion, airspace consolidation or overt pulmonary edema. Degenerative changes of the shoulders and spine. IMPRESSION: No acute process. ACT 112: Negative or not required by law. The above report was generated using voice recognition software. It may contain grammatical, syntax or spelling errors. Electronically signed by: Kuldeep Shepherd M.D. 01/03/2023 7:00 PM ECG Additional Comments: EKG reveals accelerated junctional rhythm with rate of 74, QRS = 76, QTc = 397. No acute ST-T wave changes. PG Care Time/CCT Total # of Minutes Spent Total Time Spent with Patient: Total time spent is greater than 50% in coordination of care (as documented) at patient's floor/unit and/or counseling patient: Coding Level of Care Code 49574 INT INP/OBS CARE 3/75MIN Diagnoses SOB (shortness of breath) R06.02 Hypoxia R09.02 Benign essential hypertension I10 Controlled type 2 diabetes mellitus with diabetic neuropathy E11.40 Hx of hyperlipidemia Z86.39
[2023-01-04] MEDS: MAGNESIUM SULFATE / D5W 1 GM/100 ML BAG IV SCH ×2 (02:09→04:10)
[2023-01-04] MEDS: lisinopril 10 MG TAB PO SCH (08:39)
[2023-01-04] MEDS: PROPRANOLOL HCL 60 MG LA CAP PO SCH (08:39)
[2023-01-04] MEDS: MELOXICAM 7.5 MG TAB PO SCH (08:39)
[2023-01-04] MEDS: GABAPENTIN 300 MG CAP PO SCH ×2 (08:39→21:50)
[2023-01-04] MEDS: LANTUS PER UNIT CHARGE SQ SCH ×2 (08:43→22:05)
[2023-01-04] MEDS: INSULIN ASPART PER UNIT CHARGE SC SCH ×4 (08:43→20:52)
[2023-01-04] MEDS: ENOXAPARIN INJ 40 MG/0.4 ML SYR SQ SCH (09:59)
--- NOTE | 2023-01-04 13:51 | XCELERA ---
[id number] \\[id number]
--- NOTE | 2023-01-04 14:35 | Hospitalist Progress Note ---
Date of Service January 04, 2023 Assessment & Plan (1) SOB (shortness of breath): Plan: 67-year-old male presenting with ongoing shortness of breath and hypoxia. Saturations 95% on 2 L nasal cannula. Postexertional hypoxia noted 85% after returning from the bathroom. Chest x-ray and CTA chest unremarkable aside from some right-sided atelectasis. Patient does report some mild bilateral lower extremity edema. He has mild elevation of BNP = 199. On telemetry accelerated junctional rhythm is noted. Possible CHF with mild volume overload contributing to patient's symptoms and mild hypoxemia. He does have a remote history of smoking. Reports smoking 1/4 to 1/2 pack a day intermittently for 15 years. He quit over 30 years ago. Has no previously diagnosed lung disease. Patient has never had a sleep study performed nor has he had pulmonary function testing. 2D echo was normal Patient had a good diuretic response to IV Lasix No BMP available this morning Ordered stat BMP If renal function and electrolytes within acceptable range, may order another dose of Lasix Check BMP in a.m. Incentive spirometerencourage use q. hourly while awake Patient may benefit from outpatient sleep study (2) Hypoxia: Plan: Oxygenation on 2 L nasal cannula Continue supplemental oxygen Work-up for hypoxemia as above Order rest and exercise for tomorrow (3) Benign essential hypertension: Plan: Chronic. Elevated blood pressure presently 160/79 Continue lisinopril 10 mg p.o. daily Continue propranolol 60 mg p.o. daily with holding parameters given patient's present bradycardia (4) Controlled type 2 diabetes mellitus with diabetic neuropathy: Plan: Last hemoglobin A1c = 8.4 in 11/28/2022. Patient is compliant with his home oral medication regimen. We will hold oral diabetes medications Lantus 5 units twice daily with insulin sliding scale Goal blood sugar 110-140 Continue gabapentin for diabetic neuropathy (5) Hx of hyperlipidemia: Plan: Chronic. Stable. Continue atorvastatin 10 mg daily F/E/N -Hep-Lock, magnesium supplementation, carb consistent/heart healthy diet as tolerated ProphylaxisLovenox Codefull per discussion with patient Dispositionadmit to medical with telemetry Admission and Anticipated Discharge Date Admission Date: January 03, 2023 Subjective Patient says he feels better overall although he has not walked. He says that his leg swelling is improved. Review of Systems Review of Systems: All systems reviewed & are unremarkable except as noted in Subjective Physical Exam Physical Exam: General: Awake, conversant Heart: S1, S2/regular rate and rhythm, no murmur rubs or gallops Lungs: Diminished breath sounds bilaterally. Normal effort Abdomen: Soft/nontender/nondistended. No hepatosplenomegaly Extremities: No clubbing/cyanosis. Trace bilateral edema Behavior: Appropriate, cooperative Results & Data Results & Data Vital Signs (Past 12 Hours) Vital Signs Temp Pulse Pulse Resp BP Pulse Ox O2 Del Method 01/04/23 11:41 36.8 C 65 18 143/79 H 93 Room Air 01/04/23 10:16 Nasal Cannula 01/04/23 07:14 57 L 01/04/23 06:41 36.4 C L 70 20 190/71 H 93 Nasal Cannula 01/04/23 03:19 65 O2 Flow Rate 01/04/23 11:41 01/04/23 10:16 2 01/04/23 07:14 01/04/23 06:41 2 01/04/23 03:19 PG Care Time/CCT Total # of Minutes Spent Total Time Spent with Patient: Total time spent is greater than 50% in coordination of care (as documented) at patient's floor/unit and/or counseling patient: Coding Level of Care Code 23271 SUB INP/OBS CARE 2/35MIN Diagnoses SOB (shortness of breath) R06.02 Hypoxia R09.02 Benign essential hypertension I10 Controlled type 2 diabetes mellitus with diabetic neuropathy E11.40 Hx of hyperlipidemia Z86.39
[2023-01-04 15:33] LABS: Calcium 9.1 mg/dl (8.6-10.3); Potassium 3.9 mmol/L (3.5-5.1)
[2023-01-04 15:38] LABS: BUN Creatinine Ratio 11.9 (10-20); Creatinine Clr Calc Pharmacy 76.2 ml/min; Est GFR (African American) 74.1 ml/min; Est GFR (Non-African American) 63.9 ml/min
[2023-01-04] MEDS ORDERED: ATORVASTATIN 10 MG TAB PO SCH (16:30)
--- NOTE | 2023-01-04 18:00 | Electrocardiogram Report ---
Test Reason : Blood Pressure : / mmHG Vent. Rate : 069 BPM Atrial Rate : 069 BPM P-R Int : 144 ms QRS Dur : 086 ms QT Int : 376 ms P-R-T Axes : 057 -32 099 degrees QTc Int : 402 ms Sinus rhythm with Premature supraventricular complexes Left axis deviation Inferior infarct (cited on or before 06-AUG-2018) Poor R wave progression, consider anterior NH vs. lead placement vs. LVH Abnormal ECG When compared with ECG of 03-JAN-2023 18:17, (unconfirmed) Premature ventricular complexes are no longer Present Confirmed by Artie Cortez ([id number]) on 01/04/2023 6:05:15 PM Referred By: Evaristo Garcia Confirmed By:David Cortez
--- NOTE | 2023-01-04 20:41 | Ultrasound Report ---
ULTRASOUND BILATERAL LOWER EXTREMITY VENOUS CLINICAL HISTORY: Lower extremity edema. Dyspnea. COMPARISON STUDY: No priors. TECHNIQUE: Real-time, grayscale, and color Doppler sonography of the deep veins of the right and left lower extremity was performed from the inguinal crease to the calf. Compression and augmentation wer e utilized. FINDINGS: There is no sonographic evidence of deep venous thrombosis identified in the right or left lower extremity. The common femoral, superficial femoral, and popliteal veins are patent and normally compressible bilaterally. The greater saphenous vein and the profunda femoris vein at the junction w ith the common femoral vein are clear in both legs. The visualized calf veins are patent bilaterally. IMPRESSION: There is no sonographic evidence of deep venous thrombosis identified in the right or lef t lower extremity. ACT 112: Negative or not required by law. Electronically signed by: Evaristo Chun M.D. 01/04/2023 8:40 PM
[2023-01-04] MEDS ORDERED: TAMSULOSIN HCL 0.4 MG CAP PO SCH (21:00)
[2023-01-05] MEDS: MELOXICAM 7.5 MG TAB PO SCH (07:59)
[2023-01-05] MEDS: GABAPENTIN 300 MG CAP PO SCH (07:59)
[2023-01-05] MEDS: ENOXAPARIN INJ 40 MG/0.4 ML SYR SQ SCH (08:00)
[2023-01-05] MEDS: lisinopril 10 MG TAB PO SCH (08:00)
[2023-01-05] MEDS: PROPRANOLOL HCL 60 MG LA CAP PO SCH (08:00)
[2023-01-05] MEDS: LANTUS PER UNIT CHARGE SQ SCH (08:03)
[2023-01-05] MEDS: INSULIN ASPART PER UNIT CHARGE SC SCH ×2 (08:03→12:14)
[2023-01-05 10:35] LABS: BUN Creatinine Ratio 14.3 (10-20); Calcium 8.9 mg/dl (8.6-10.3); Est GFR (African American) 85.3 ml/min; Est GFR (Non-African American) 73.6 ml/min; Potassium 3.6 mmol/L (3.5-5.1)
--- NOTE | 2023-01-05 11:07 | Discharge Summary ---
Date of Service January 05, 2023 Admission HPI Per Admitting Provider Manish Madrid is a 67-year-old male with history of diabetes, hypertension and hyperlipidemia presenting from home with complaint of several weeks of progressive shortness of breath. Patient had COVID on November 05, 2022. He reports that his illness was mild. However, since recovering, he reports ongoing fatigue and shortness of breath. Patient recently purchased a home pulse oximeter and has been monitoring his s aturations. He reports they have been low in the upper 80s with heart rate in the 40s to 50s. He does report feeling short of breath with some dyspnea on exertion as well. He was seen by his PCP today with these complaints. Was found to have oxygen levels in the 80s and was subsequently sent to the emergency room. Patient denies chest pain, palpitations, cough or wheeze. Denies fever, chills. Denies nausea, vomiting, diarrhea, constipation. Denies dizziness or syncope. He does have some mild increase in bilateral lower extremity edema noted over the last week or so. Patient seen in the room. Was breathing comfortably and speaking in complete sentences. He had supplemental oxygen in place2 L nasal cannula with saturations in the mid 90s. Oxygen turned off during our conversation and saturations maintained 92% or above. Patient did get up and ambulate to the bathroom without oxygen, upon his return to the bed saturations were 85% and patient was visibly dyspneic. ER course: Ativan 1 mg IV Magnesium 1 g IV Flomax 0.4 mg orderednot given Gabapentin 300 mg p.o. orderednot given Admission Exam Per Admitting Provider General: patient resting comfortably, NAD, non-toxic in appearance, AA&O x 4 Skin: warm, dry, intact, no rashes or lesions HEENT: NC/AT, PERRL, EOMI, anicteric sclera, conjunctiva without injection, external ear normal to inspection and nontender, nares patent, moist mucus membranes, dentition intact, no oropharyngeal lesions, neck supple, trachea midline, no LAD, no thyromegaly, no JVD Heart: +S1/S2, regular, no m/r/g Lungs: equal air entry bilaterally, crackles in bilateral bases Abd: +BS, soft, NT/ND, no masses/organomegaly/ascites Ext: warm, 2+ pulses in UE/LE bilaterally, no clubbing/cyanosis, 1+ pitting edema bilateral lower extremities Neuro: nonfocal, patient AA&O x 4, speech intact, no facial droop, moving all extremities on command with equal strength 5/5 Principal Diagnosis Acute diastolic congestive heart failure due to longstanding uncontrolled hypertension Discharge Exam General: Awake, conversant Heart: S1, S2/regular rate and rhythm, no murmur rubs or gallops Lungs: Diminished breath sounds bilaterally. Normal effort Abdomen: Soft/nontender/nondistended. No hepatosplenomegaly Extremities: No clubbing/cyanosis. Trace bilateral edema Behavior: Appropriate, cooperative Discharge Data Allergies Allergy/AdvReac Type Severity Reaction Status Date / Time adhesive tape Allergy Mild RED/ITCHY Verified 12/11/22 09:06 Consultations 01/03/23 22:05 ED Decision to Admit Stat Ordered Studies 01/03/23 18:05 CT angio chest PE protocol Stat 01/04/23 14:19 US venous doppler LE Routine Hospital Course (1) Acute diastolic (congestive) heart failure: Patient presented with shortness of breath on exertion, was found to be hypoxic on exertion. Chest x-ray and CTA of the chest was unremarkable Patient had mild bilateral lower extremity edema and an elevated BNP of 199 Clinically the patient was diagnosed with CHF and volume overload He was given IV Lasix with very good clinical response His breathing improved, leg swelling improved. He is no more requiring oxygen with exertion Echocardiogram did not show any depressed ejection fraction Most likely the patient has acute diastolic congestive heart failure from his longstanding uncontrolled hypertension that led to volume overload I decided to discharge the patient on 20 mg of Lasix that will help keep the fluid off and will help with better blood pressure control as well. He was advised to follow-up with his PCP in 1 week (2) SOB (shortness of breath): Please see above Patient may benefit from outpatient sleep study (3) Hypoxia: Resolved with diuresis Not needing oxygen on ambulation (4) Benign essential hypertension: Chronic. Elevated blood pressure 160/79 Continue lisinopril 10 mg p.o. daily Continue propranolol 60 mg p.o. daily with holding parameters given patient's present bradycardia Added Lasix that will help with blood pressure control and fluid management (5) Controlled type 2 diabetes mellitus with diabetic neuropathy: Last hemoglobin A1c = 8.4 in 11/28/2022. Patient is compliant with his home oral medication regimen. Resume outpatient diabetes management Continue gabapentin for diabetic neuropathy (6) Hx of hyperlipidemia: Chronic. Stable. Continue atorvastatin 10 mg daily Plan Discharge today Total Time Total Time Spent Total Time Spent (In Minutes): 35 Discharge Plan Discharge Items Patient Disposition: Home - Self-Care Reason For Visit: SOB Discharge Diagnosis: Acute diastolic congestive heart failure Activity: Resume your previous activity Non-emergency contact: Primary Care Provider Call non-emergency contact if: you have any medication questions and your symptoms worsen Follow-up/Referrals: Evaristo Garcia MD [Primary Care Provider] - Diet: Heart Healthy and Low Sodium (2gm) Addtl Attending Provider Instructions: Advised to follow-up with PCP in 1 week Pending Studies at Discharge: No Stand-Alone Forms: My [facility] [employer] Medications and DC Order Prescriptions: New furosemide [Lasix] 20 mg tablet 20 mg PO DAILY Qty: 30 0RF Continued tamsulosin 0.4 mg capsule 0.8 mg PO HS Qty: 180 3RF lisinopril 10 mg tablet 10 mg PO DAILY Qty: 90 3RF propranolol 60 mg capsule,extended release 24 hr 60 mg PO DAILY Qty: 90 3RF atorvastatin 10 mg tablet 10 mg PO DAILY Qty: 90 3RF Rx Instructions: Take with supper for cholesterol meloxicam 15 mg tablet 15 mg PO QAM Qty: 30 11RF metronidazole 0.75 % cream 1 appln topical BID PRN (Reason: [place]) Qty: 45 3RF triamcinolone acetonide 0.1 % cream 1 appln topical BID PRN (Reason: contact dermatitis) Qty: 30 0RF metformin 500 mg tablet extended release 24 hr 500 mg PO BID Qty: 180 3RF glimepiride 2 mg tablet 2 mg PO .COMPLEX Qty: 270 3RF Rx Instructions: 2 mg orally 1 prior to breakfast and 2 prior to supper; gabapentin 300 mg capsule 300 mg PO BID Qty: 180 3RF Discharge Orders: Discharge Order (Routine); Ordered 01/05/23 Ordered By: Sayda Bergman/Other Patient Handouts: Managing Type 2 Diabetes, Special Foot Care for Diabetes Admission Data Admit Date/Time: 01/03/23 23:15 Attending Provider: Sayda Johnson Admmarilynn Provider: Laurie Smalls Primary Care Provider: Evaristo Garcia Other Providers: Laurie Smalls Other Interventions: Discharge Summary Assessment (RN) Last Done: 01/05/23 12:01 Coding Level of Care Code 23655 INP/OBS DISCH >30 MIN Diagnoses Acute diastolic (congestive) heart failure I50.31 SOB (shortness of breath) R06.02 Hypoxia R09.02 Benign essential hypertension I10 Controlled type 2 diabetes mellitus with diabetic neuropathy E11.40 Hx of hyperlipidemia Z86.39
== END 2023-01-05 13:11 | disposition home or self-care (01) ==
LOC: ED 17:58 → 2W 17:58 → SUATTDRO 23:15 → 2W 23:59